=== PATIENT | male | born 1960 | race Two or more races ===

== ENCOUNTER → 2016-10-26 | Outpatient (REF) | payer BC ==
[~2016-10-26] MED LIST: FENO160T10 PO; FISH1000 PO; LIPI10TA PO; MULT1TAB10 PO; RAMI5CA PO
== END ==
LOC: M SMT 17:03
PROVIDERS: ATTEND Specialist
DX: N32.0 Bladder-neck obstruction (principal)

== ENCOUNTER → 2016-12-25 | Outpatient (CLI) | payer BC ==
--- NOTE | 2016-12-25 14:19 | REP ---
Supine abdomen two views: There is a 13 ml calcification projected over the lower pole of the left kidney. No right renal calculi are identified. No calcifications are identified along the courses of the ureters or in the urinary bladder. Bowel gas pattern is normal. Skeletal structures are unremarkable. Impression: Left renal calculus Signed by Nick Stephen MD 12/25/2016 02:10 P
== END ==
LOC: M SMT 13:53
PROVIDERS: ATTEND Specialist
DX: N20.0 Calculus of kidney (principal)

== ENCOUNTER 2016-12-31 08:58 | Day surgery (SDC) | payer BC ==
[~2016-12-31] VITALS: Ht 172.7 cm; Wt 97.1 kg
[2016-12-31] MEDS ORDERED: LR 500 ML IV ONE (09:15)
[2016-12-31] MEDS ORDERED: PROPOFOL 200 MG/20 ML VIAL As Ordered ONE ×2 (09:23→10:08)
[2016-12-31] MEDS ORDERED: LIDOCAINE 2% INJ 100 MG/5 ML SDV (FOR ANES.) As Ordered ONE (09:23)
[2016-12-31] MEDS ORDERED: MIDAZOLAM INJ 2 MG/2 ML VIAL (J2250) As Ordered ONE (09:23)
[2016-12-31] MEDS ORDERED: fentaNYL 100 MCG/2 ML INJECTION (J3010) As Ordered ONE (09:47)
[2016-12-31 11:15] VITALS: BP 132/80
--- NOTE | 2016-12-31 15:11 | RO ---
DATE OF PROCEDURE: 12/31/2016 PREOPERATIVE DIAGNOSIS: 8 mm left renal stone. POSTOPERATIVE DIAGNOSIS 8 mm left renal stone. PROCEDURE: Left extracorporeal shock wave lithotripsy (ESWL). SURGEON: Dr. Lcuie Zelaya PIPELINER: ANESTHESIA: MAC. MEDICATIONS: Ancef 2 grams preoperatively. INDICATIONS FOR PROCEDURE: The patient is a 56-year-old gentleman who on a CT scan was shown to have an 8 mm nonobstructing left renal stone after he had difficulty passing a stone that had gotten stuck at this urethral meatus. After discussing all different options, alternatives, risks, and benefits, it was decided to proceed with a left extracorporeal shock wave lithotripsy. A KUB in the office though showed the stone to measure more like 12.5 mm. DESCRIPTION OF PROCEDURE: The patient was brought into the operating room. Sequential compression devices were in place, and preoperative antibiotics had been given. Anesthesia was given. Using both fluoroscopy and ultrasound, the stone was well visualized and then placed in the cross-hairs of the lithotripsy machine. The patient then received a total of 2500 shock waves with a total power level of 20. He tolerated the procedure well and was returned to the recovery room in stable condition.
== END 2016-12-31 11:35 | disposition home or self-care (01) ==
LOC: M SDC 08:58
PROVIDERS: ATTEND Specialist
DX: N20.0 Calculus of kidney (principal); I10 Essential (primary) hypertension; M06.9 Rheumatoid arthritis, unspecified; E78.00 Pure hypercholesterolemia, unspecified; K21.9 Gastro-esophageal reflux disease without esophagitis; R06.83 Snoring; Z79.899 Other long term (current) drug therapy; Z88.7 Allergy status to serum and vaccine
CPT/HCPCS: 50590; J0690; J2250; J3010